=== PATIENT | female | born 1970 | race Caucasian/White ===

== ENCOUNTER → 2017-11-09 | Outpatient (CLI) | payer BC ==
[2017-11-09 14:06] LABS: ADD MAN DIFF? NO
[2017-11-09 14:10] LABS: WHITE BLOOD COUNT 6.8 10^3/ul (4.8-10.8)
[2017-11-09 14:10] LABS: BASOPHILS % 0.4 % (0.0-2.0); EOSINOPHILS % 0.1 % (0.0-7.0); HEMATOCRIT 37.6 % (37.0-47.0); HEMOGLOBIN 12.8 g/dl (12.0-16.0); LYMPHOCYTES # 2.2 10^3/ul (0.8-2.9); LYMPHOCYTES % 32.5 % (15.0-51.0); MEAN CORPUSCULAR HEMOGLOBIN 32.5 pg (29.0-33.0); MEAN CORPUSCULAR VOLUME 95.4 fl (82.0-101.0); MEAN PLATELET VOLUME 10.6 fl (7.4-10.4); MONOCYTE # 0.5 10^3/ul (0.3-0.9); MONOCYTES % 6.6 % (0.0-11.0); NEUTROPHIL # 4.1 10^3/ul (1.6-7.5); NEUTROPHILS % 60.3 % (39.0-77.0); PLATELET COUNT 261 10^3/UL (140-415); RED BLOOD COUNT 3.94 10^6/ul (4.20-5.40); RED CELL DISTRIBUTION WIDTH 12.7 % (11.5-14.5)
[2017-11-09 14:18] LABS: HEMOGLOBIN A1C 6.9 % (0-5.9)
[2017-11-09 14:35] LABS: ALANINE AMINOTRANSFERASE 52 IU/L (13-69); ALBUMIN 4.3 g/dl (3.3-4.9); ALBUMIN/GLOBULIN RATIO 1.19; ALKALINE PHOSPHATASE 93 IU/L (42-121); ANION GAP 17 (8-16); ASPARTATE AMINO TRANSFERASE 33 IU/L (15-46); BILIRUBIN,INDIRECT 0.3 mg/dl (0-1.1); BILIRUBIN,TOTAL 0.3 mg/dl (0.2-1.3); BLOOD UREA NITROGEN 12 mg/dl (7-20); C-REACTIVE PROTEIN 0.5 mg/dl (0.0-0.9); CALCIUM 8.9 mg/dl (8.4-10.2); CARBON DIOXIDE 21 mmol/L (21-31); CHLORIDE 105 mmol/L (97-110); CREATINE KINASE 161 IU/L (23-200); CREATININE 0.59 mg/dl (0.44-1.00); GLUCOSE 197 mg/dl (70-220); POTASSIUM 4.4 mmol/L (3.5-5.1); SODIUM 139 mmol/L (135-144); TOTAL PROTEIN 7.9 g/dl (6.1-8.1)
[2017-11-09 15:14] LABS: ERYTHROCYTE SEDIMENTATION RATE 23 mm/Hr (0-20)
[2017-11-09 19:01] LABS: RHEUMATOID FACTOR NEGATIVE (NEGATIVE)
[2017-11-12 19:32] LABS: CYCLIC CITRULLINATED PEP IGG <16 UNITS
[2017-11-14 18:02] LABS: ANA SCREEN POSITIVE (NEGATIVE)
[2017-11-14 18:46] LABS: ANA PATTERN SPECKLED
== END | disposition home or self-care (01) ==
LOC: RAD 13:36
DX: M46.86 Other specified inflammatory spondylopathies, lumbar region (principal); M75.31 Calcific tendinitis of right shoulder; M54.5 Low back pain
CPT/HCPCS: 72040; 72100; 73020-50; 80053; 82550; 83036; 85025; 85651; 86038; 86140; 86200; 86430